=== PATIENT | male | born 1970 | race Caucasian/White ===

== ENCOUNTER 2022-04-02 15:06 | Outpatient (CLI) | payer BC, SELFPAY ==
[2022-04-02 13:41] LABS: Albumin* 4.4 g/dL (3.3-5.0); Chloride* 104 mmol/L (96-114); Sodium* 142 mmol/L (135-149)
[2022-04-02 13:42] LABS: Potassium* 4.5 mmol/L (3.6-5.1)
[2022-04-02 13:43] LABS: Cholesterol* 145 mg/dL (90-199); Triglycerides* 196 mg/dL (40-149)
[2022-04-02 13:44] LABS: HDL Cholesterol* 38 mg/dL (>=40); LDL Cholesterol Calculated 68 mg/dL (<100)
[2022-04-02 13:44] LABS: Alkaline Phosphatase* 113 U/L (40-150); Aspartate Amino Transferase* 27 U/L (12-35); Bilirubin Total* 0.6 mg/dL (0.1-1.5); Blood Urea Nitrogen* 17 mg/dL (7-30); Carbon Dioxide* 28 mmol/L (20-32); Estimated Glomerular Filt Rate 90 ml/min; Total Protein* 7.2 g/dL (6.0-8.3)
[2022-04-02 13:45] LABS: Alanine Aminotransferase* 40 U/L (4-50); Calcium* 9.7 mg/dL (8.4-10.6); Glucose* 158 mg/dL (60-115)
== END 2022-04-02 15:07 | disposition home or self-care (01) ==
PROVIDERS: PCP Physician Assistant Medical; Visit Provider Physician Assistant Medical
DX: E78.5 Hyperlipidemia, unspecified (principal); E11.9 Type 2 diabetes mellitus without complications; M10.9 Gout, unspecified
CPT/HCPCS: 80053; 80061

== ENCOUNTER 2024-04-01 09:36 | Outpatient (CLI) | payer BC, SELFPAY | END 2024-04-01 09:37 | disposition home or self-care (01) | LOC: NFLDREF 04-14 13:13 | PROVIDERS: PCP Family Medicine; Referring Provider Family Medicine; Visit Provider Physician Assistant Medical | DX: E11.9 Type 2 diabetes mellitus without complications (principal); E78.2 Mixed hyperlipidemia; M10.072 Idiopathic gout, left ankle and foot; Z13.29 Encounter for screening for other suspected endocrine disorder; Z12.5 Encounter for screening for malignant neoplasm of prostate | CPT/HCPCS: 80053; 80061; 82043; 82570; 84443; G0103 ==